=== PATIENT | female | born 1965 | race Hispanic/Latino ===

== ENCOUNTER 2017-11-19 15:15 | Emergency (ER) | payer OTHER ==
[2017-11-19 15:21] VITALS: BMI 29.2
[2017-11-19 15:24] VITALS: RESP 18; O2SAT 99
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
--- NOTE | 2017-11-19 16:55 | RAD ---
PROCEDURE: Right Ankle Radiographs. HISTORY: Ankle pain status post fall COMPARISON: None FINDINGS: BONES: No evidence of acute displaced fracture nor dislocation. JOINTS: The slight widening of the medial aspect of the ankle mortise could be positional. Clinical correlation recommended SOFT TISSUES: Minor bilateral soft tissue swelling lateral greater than medial OTHER FINDINGS: None. IMPRESSION: No evidence of acute displaced fracture. Slight widening of the ankle mortise at could be positional. Clinical correlation recommended. Mild bilateral soft tissue swelling lateral greater than medial.
[2017-11-19 17:16] VITALS: BP 125/70; PULSE 85; TEMP 98
== END 2017-11-19 17:10 | disposition home or self-care (01) ==
LOC: ED 15:15 → MERGE 15:15 → ED 17:10
DX: S93.401A Sprain of unspecified ligament of right ankle, initial encounter (principal); V19.9XXA Pedal cyclist (driver) (passenger) injured in unspecified traffic accident, initial encounter; Y93.55 Activity, bike riding; E03.9 Hypothyroidism, unspecified

== ENCOUNTER 2018-03-12 08:00 | Emergency (ER) | payer OTHER ==
[2018-03-12 08:18] VITALS: RESP 18; BMI 26.5
--- NOTE | 2018-03-12 09:40 | ED PDOC ---
Arrival/HPI - General Historian: Patient - History of Present Illness Symptom Onset: Gradual Symptom Course: Worsening Quality: Pressure <Robby Green - Last Filed: 03/12/18 10:54> - History of Present Illness Severity Level: Moderate <Femi Song - Last Filed: 03/12/18 18:41> - General Chief Complaint: Headache Time Seen by Provider: 03/12/18 09:09 - History of Present Illness Narrative History of Present Illness (Text): 03/12/18 09:33 53 year old female, past medical history of Hypothyroidism and Hyperlipidemia, presents to the ED with pressure sensations in the head. She states this has been going on for a year and a half, however recently it has gotten worse. The pressure is worse on the right side particularly behind the ear radiating to the back of the neck. She states this is different than a headache. It comes and goes. She associates the pressure in the head with electric energy sensations in the body particularly the extremities. She denies any pins and needles, numbness, or tingling. Patient endorses dizziness with lying down and blurry vision. She denies nausea, vomiting, loss of consciousness, chest pain, or shortness of breath. There is no known inciting events. She has not changed her medications recently. PMD: Dr. Robledo (Robby Green) Past Medical History - Provider Review Nursing Documentation Reviewed: Yes - Infectious Disease Hx of Infectious Diseases: None - Cardiac Hx Cardiac Disorders: No - Pulmonary Hx Respiratory Disorders: No - Neurological Hx Neurological Disorder: No - HEENT Hx HEENT Disorder: No - Renal Hx Renal Disorder: No - Endocrine/Metabolic Hx Hypothyroidism: Yes - Hematological/Oncological Hx Blood Disorders: No - Integumentary Hx Dermatological Disorder: No - Musculoskeletal/Rheumatological Hx Musculoskeletal Disorders: No - Gastrointestinal Hx Gastrointestinal Disorders: No - Psychiatric Hx Substance Use: No - Anesthesia Hx Anesthesia: No <Robby Green - Last Filed: 03/12/18 10:54> Family/Social History - Physician Review Nursing Documentation Reviewed: Yes Family/Social History: No Known Family HX Smoking Status: Former Smoker Hx Alcohol Use: No Hx Substance Use: No <Robby Green - Last Filed: 03/12/18 10:54> Allergies/Home Meds <Robby Green - Last Filed: 03/12/18 10:54> <Femi Song - Last Filed: 03/12/18 18:41> Allergies/Adverse Reactions: Allergies No Known Allergies Allergy (Verified 11/19/17 15:21) Home Medications: Home Meds Medication Instructions Recorded Confirmed Levothyroxine [Synthroid] 100 mcg PO DAILY 11/19/17 03/12/18 Review of Systems - Physician Review All systems were reviewed & negative as marked: Yes - Review of Systems Constitutional: absent: Weight Change, Fevers Eyes: Vision Changes ENT: absent: Tinnitus Respiratory: absent: SOB, Cough Cardiovascular: absent: Chest Pain Gastrointestinal: absent: Abdominal Pain Genitourinary Female: absent: Dysuria Musculoskeletal: absent: Back Pain Skin: absent: Skin Lesions Neurological: Dizziness. absent: Headache Endocrine: absent: Diaphoresis <Martha Greenbah - Last Filed: 03/12/18 10:54> Physical Exam Vital Signs Reviewed: Yes Temperature: Afebrile Blood Pressure: Normal Pulse: Regular Respiratory Rate: Normal Appearance: Positive for: Well-Appearing, Non-Toxic, Comfortable Pain Distress: None Mental Status: Positive for: Alert and Oriented X 3 - Systems Exam Head: Present: Atraumatic, Normocephalic Pupils: Present: PERRL Extroacular Muscles: Present: EOMI Ears: Present: NORMAL TM Mouth: Present: Moist Mucous Membranes Pharnyx: No: ERYTHEMA, EXUDATE, TONSILS ENLARGED Neck: Present: Normal Range of Motion Respiratory/Chest: Present: Clear to Auscultation, Good Air Exchange. No: Respiratory Distress, Accessory Muscle Use Cardiovascular: Present: Regular Rate and Rhythm, Normal S1, S2. No: Murmurs Abdomen: No: Tenderness, Distention, Peritoneal Signs Neurological: Present: CN II-XII Intact, Speech Normal Skin: Present: Warm, Dry Lymphatic: No: Cervical Adenopathy Psychiatric: Present: Alert, Oriented x 3 <Martha Greenbah - Last Filed: 03/12/18 10:54> Vital Signs Temp Pulse Resp BP Pulse Ox 03/12/18 11:20 97.9 F 68 18 131/71 97 03/12/18 11:02 98.0 F 64 18 142/69 97 03/12/18 09:46 75 18 145/74 96 03/12/18 08:17 98.2 F 77 18 147/80 96 Medical Decision Making Reassessment Condition: Re-examined <Robby Green - Last Filed: 03/12/18 10:54> <Femi Song - Last Filed: 03/12/18 18:41> ED Course and Treatment: 03/12/18 09:45 53F, PMH HLD and Hypothyroid, presents with worsening pressure in the head. CBC, CMP, Free T4, TSH, Orthostatics, test ordered. CT head ordered. 03/12/18 10:54 CT head unremarkable Labs show elevated TSH 03/12/18 11:03 (Robby Green) Patient is a 53 year old female has a past medical history of hypothyroisim and hyperlipidemia, presenting with head-pressure that has been worsening recently. Patient Seen With Resident: In agreement with resident note which contains more details about the patient. Patient was seen and evaluated with resident. Came up with plan and treatment together. (Femi Song) - Lab Interpretations Lab Results: 03/12/18 09:30 03/12/18 09:30 Lab Results 03/12/18 09:30: Free T4 1.19, TSH 3rd Generation 12.30 H 03/12/18 09:30: Sodium 142, Potassium 3.6, Chloride 102, Carbon Dioxide 29, Anion Gap 14, BUN 15, Creatinine 0.7, Est GFR ( Amer) > 60, Est GFR (Non- Af Amer) > 60, Random Glucose 97, Calcium 9.2, Phosphorus 3.4, Magnesium 2.1, Total Bilirubin 0.4, AST 24, ALT 23, Alkaline Phosphatase 56, Total Protein 7.6 , Albumin 4.2, Globulin 3.3, Albumin/Globulin Ratio 1.3 03/12/18 09:30: WBC 5.6, RBC 4.30, Hgb 11.7 L, Hct 34.8 L, MCV 80.9, MCH 27.2, MCHC 33.6, RDW 13.1, Plt Count 422, MPV 8.3, Gran % 60.0, Lymph % (Auto) 31.7, [place] % (Auto) 5.0, Eos % (Auto) 2.9, Baso % (Auto) 0.4, Gran # 3.35, Lymph # ( Auto) 1.8, [place] # (Auto) 0.3, Eos # (Auto) 0.2, Baso # (Auto) 0.02 - RAD Interpretation Radiology Orders: 03/12/18 09:49 HEAD W/O CONTRAST [CT] Stat - PA / FIELD SCOUT / Resident Statement MD/DO has reviewed & agrees with the documentation as recorded. MD/DO has examined the patient and agrees with the treatment plan. <Femi Song - Last Filed: 03/12/18 18:41> Disposition/Present on Arrival - Present on Arrival Any Indicators Present on Arrival: No History of DVT/PE: No History of Uncontrolled Diabetes: No Urinary Catheter: No History of Decub. Ulcer: No History Surgical Site Infection Following: None - Disposition Have Diagnosis and Disposition been Completed?: Yes Disposition Time: 10:58 <Robby Green - Last Filed: 03/12/18 10:54> <Femi Song - Last Filed: 03/12/18 18:41> - Disposition Diagnosis: Paresthesia, Hypothyroidism Disposition: HOME/ ROUTINE Condition: IMPROVED Discharge Instructions (ExitCare): Hypothyroidism (Underactive Thyroid) (DC), Paresthesias (DC) Referrals: Delilah Robledo [Family Provider] - Follow up with primary Forms: [employer] (Amharic)
[2018-03-12 09:53] LABS: BASO # 0.02 K/mm3 (0.0-2.0); BASO % 0.4 % (0.0-3.0); EOS # 0.2 (0.0-0.7); EOS % 2.9 % (1.5-5.0); GRAN # 3.35 (1.4-6.5); HEMOGLOBIN 11.7 g/dL (12.0-16.0); LYMPH # 1.8 (1.2-3.4); LYMPH % 31.7 % (22.0-35.0); MEAN CELL VOLUME 80.9 fl (80.0-105.0); MEAN CORPUSCULAR HEMOGLOBIN 27.2 pg (25.0-35.0); MEAN CORPUSCULAR HGB CONC 33.6 g/dl (31.0-37.0); MEAN PLATELET VOLUME 8.3 fl (7.0-11.0); MONO # 0.3 (0.1-0.6); RBC 4.3 10^6/uL (3.5-6.1); RED CELL DISTRIBUTION WIDTH 13.1 % (11.5-14.5); WHITE BLOOD COUNT 5.6 10^3/ul (4.5-11.0)
[2018-03-12 10:01] LABS: ALB/GLOB RATIO 1.3 (1.1-1.8); ALBUMIN 4.2 g/dL (3.0-4.8); ALT/SGPT 23 U/L (7-56); AST/SGOT 24 U/L (14-36); BLOOD UREA NITROGEN 15 mg/dL (7-21); CALCIUM 9.2 mg/dL (8.4-10.5); GFR NON-AFRICAN AMERICAN > 60
[2018-03-12 10:28] LABS: FREE T4 1.19 ng/dL (0.78-2.19)
--- NOTE | 2018-03-12 10:42 | CT ---
Date of service: 03/12/2018 PROCEDURE: CT HEAD WITHOUT CONTRAST. HISTORY: head pressure, blurry vision, dizziness COMPARISON: None available. TECHNIQUE: Axial computed tomography images were obtained through the head/brain without intravenous contrast. Radiation dose: Total exam DLP = 827.30 mGy-cm. This CT exam was performed using one or more of the following dose reduction techniques: Automated exposure control, adjustment of the mA and/or kV according to patient size, and/or use of iterative reconstruction technique. FINDINGS: HEMORRHAGE: No intracranial hemorrhage. BRAIN: No mass effect or edema. The pool-white matter differentiation appears intact. Please note that MRI with diffusion imaging is more sensitive in the detection of acute ischemic event. VENTRICLES: No hydrocephalus. CALVARIUM: Unremarkable. PARANASAL SINUSES: Unremarkable as visualized. No significant inflammatory changes. MASTOID AIR CELLS: Unremarkable as visualized. No inflammatory changes. OTHER FINDINGS: None. IMPRESSION: No acute intracranial pathology identified.
[2018-03-12 11:02] VITALS: O2SAT 97
[2018-03-12 11:21] VITALS: BP 131/71; PULSE 68; TEMP 97.9
== END 2018-03-12 11:20 | disposition home or self-care (01) ==
LOC: ED 08:00
DX: R20.2 Paresthesia of skin (principal); E03.9 Hypothyroidism, unspecified; E78.5 Hyperlipidemia, unspecified; Z87.891 Personal history of nicotine dependence

== ENCOUNTER 2018-04-19 06:56 | Emergency (ER) | payer OTHER ==
[2018-04-19 06:56] VITALS: BMI 26.5
[2018-04-19 07:39] VITALS: O2SAT 98
--- NOTE | 2018-04-19 08:00 | ED PDOC ---
Arrival/HPI - General Chief Complaint: Headache Time Seen by Provider: 04/19/18 07:56 Historian: Patient - History of Present Illness Narrative History of Present Illness (Text): 53yo female, with past medical history of hypothyroidsm and currently on synthroid, comes to ER reporting a pressure sensation in her neck. Patient states the sensation is present in her head as well and states there is "electricity" in her head. She denies any neck pain, headache, or shoulder pain. Patient states she was seen in this ER 1 month ago for the same complaints and states she had her medications changed; patient has not followed up with a PCP or a neurologist since her last visit. Patient does report some dizziness while lying down; otherwise no fever, chills, chest pain, shortness of breath, vomiting, weakness or numbness. No additional medical complaints. PMD: None provided Time/Duration: > month Symptom Onset: Gradual Symptom Course: Unchanged Quality: Pressure Past Medical History - Provider Review Nursing Documentation Reviewed: Yes - Infectious Disease Hx of Infectious Diseases: None - Reproductive Menopause: Yes - Cardiac Hx Cardiac Disorders: No - Pulmonary Hx Respiratory Disorders: No - Neurological Hx Neurological Disorder: No - HEENT Hx HEENT Disorder: No - Renal Hx Renal Disorder: No - Endocrine/Metabolic Hx Hypothyroidism: Yes - Hematological/Oncological Hx Blood Disorders: No - Integumentary Hx Dermatological Disorder: No - Musculoskeletal/Rheumatological Hx Musculoskeletal Disorders: No - Gastrointestinal Hx Gastrointestinal Disorders: No - Psychiatric Hx Substance Use: No - Anesthesia Hx Anesthesia: No Family/Social History - Physician Review Nursing Documentation Reviewed: Yes Family/Social History: No Known Family HX Smoking Status: Former Smoker Hx Alcohol Use: No Hx Substance Use: No Allergies/Home Meds Allergies/Adverse Reactions: Allergies No Known Allergies Allergy (Verified 11/19/17 15:21) Home Medications: Home Meds Medication Instructions Recorded Confirmed Levothyroxine [Synthroid] 100 mcg PO DAILY 11/19/17 03/12/18 Review of Systems - Physician Review All systems were reviewed & negative as marked: Yes (as per HPI) - Review of Systems Constitutional: absent: Fevers Cardiovascular: absent: Chest Pain Gastrointestinal: absent: Vomiting Musculoskeletal: absent: Neck Pain, Other (shoulder pain) Neurological: Dizziness, Other (pressure in neck). absent: Headache Physical Exam - Physical Exam Narrative Physical Exam (Text): Gen: VS reviewed, alert, well developed, well nourished, nontoxic, mild distress. ENT: normal pharynx. Eye: EOMI, PERRL. Neck: no JVD, supple, no adenopathy. CV: regular rate, regular rhythm, no rubs, no murmur, no gallops, S1, S2, pulses equal and strong. Pulm: no distress, clear to auscultation, no wheeze, no rhonchi, breath sounds equal, no rales. Abd: soft, nontender, no guarding, no rebound, no rigidity, normal bowel sounds. Ext: no edema. Skin: good color, no rash, no cyanosis. Psych: responds appropriately to questions, normal affect. Neuro: oriented x 3, CN2-12 intact grossly, motor intact, sensation intact. Vital Signs Temp Pulse Resp BP Pulse Ox 04/19/18 07:39 98.2 F 79 16 142/81 98 04/19/18 07:31 98.1 F 84 18 130/79 99 Medical Decision Making ED Course and Treatment: Impression: 53yo female, comes to ER reporting "pressure sensation" in her neck x 1 month Plan: -- Labs -- EKG -- Reassess and disposition Prior Visits: Notes and results from previous visits were reviewed. Patient was last seen in the emergency department on 03/12/2018 for similar complaints, had a CT Head done which was unremarkable and was discharged home. Progress Notes: 04/19/18 09:30 Labs reviewed, shows no clinically significant abnormalities. Patient stable for discharge home; instructed to follow up with PMD in 2-3 days. 04/19/18 10:20 patient seen for neck pain and scalp "pressure", no headache, no photophobia, no meningismus, no neuro deficits. according to records the symptoms have been ongoing for well over a year. ddx including but not limited to cervical radiculopathy. i have informed the patient and her daughter (abel via phone) of plan and recommendation and they appear to understand. they will follow up with primary care docotor. - EKG Interpretation EKG Interpretation (Text): 04/19/18 08:45 [id number]: nsr at 73 bpm, nml qrs, nml axis, no acute sttw abn Interpreted by ED Physician: Yes - Scribe Statement The provider has reviewed the documentation as recorded by the Scribe [employer] Provider Ashish Attestation: All medical record entries made by the Ashish were at my direction and personally dictated by me. I have reviewed the chart and agree that the record accurately reflects my personal performance of the history, physical exam, medical decision making, and the department course for this patient. I have also personally directed, reviewed, and agree with the discharge instructions and disposition. Disposition/Present on Arrival - Present on Arrival Any Indicators Present on Arrival: No History of DVT/PE: No History of Uncontrolled Diabetes: No Urinary Catheter: No History of Decub. Ulcer: No History Surgical Site Infection Following: None - Disposition Have Diagnosis and Disposition been Completed?: Yes Diagnosis: Radiculopathy of cervical region Disposition: HOME/ ROUTINE Disposition Time: 09:31 Patient Plan: Discharge Condition: STABLE Discharge Instructions (ExitCare): Radiculopathy (DC) Additional Instructions: return for any new or worsening symptoms. follow up with a neurologist. KENDELL MA, thank you for letting us take care of you today. Your provider was Dr. Roge Lancaster and you were treated for head pressure. The emergency m edical care you received today was directed at your acute symptoms. If you were prescribed any medication, please fill it and take as directed. It may take several days for your symptoms to resolve. Return to the Emergency Department if your symptoms worsen, do not improve, or if you have any other problems. Please contact your doctor or call one of the physicians/clinics you have been referred to that are listed on the Patient Visit Information form that is included in your discharge packet. Bring any paperwork you were given at discharge with you along with any medications you are taking to your follow up visit. Our treatment cannot replace ongoing medical care by a primary care provider outside of the emergency department. Thank you for allowing the 24h[facility] team to be part of your care today. If you had an X-Ray or CT scan: A Radiologist will review the ED reading if any change in treatment is needed we will contact you. If you had a blood, urine, or wound culture: It will take several days for the results, if any change in treatment is needed we will contact you. If you had an STI test: It will take 48 hours for the results. Please call after 1 week if you have not heard back. Referrals: Damian Vega MD [Staff Provider] - Follow up with primary [facility] [Outside] - Follow up with primary Forms: [employer] (Kinyarwanda)
[2018-04-19 08:37] LABS: BASO # 0.02 K/mm3 (0.0-2.0); BASO % 0.4 % (0.0-3.0); EOS # 0.2 (0.0-0.7); EOS % 3.4 % (1.5-5.0); GRAN # 2.81 (1.4-6.5); GRAN % 53.3 % (50.0-68.0); HEMOGLOBIN 11.6 g/dL (12.0-16.0); LYMPH # 1.8 (1.2-3.4); MEAN CELL VOLUME 82.9 fl (80.0-105.0); MEAN CORPUSCULAR HEMOGLOBIN 27.2 pg (25.0-35.0); MEAN CORPUSCULAR HGB CONC 32.9 g/dl (31.0-37.0); MEAN PLATELET VOLUME 8.2 fl (7.0-11.0); MONO # 0.5 (0.1-0.6); MONO % 8.9 % (1.0-6.0); RBC 4.26 10^6/uL (3.5-6.1); RED CELL DISTRIBUTION WIDTH 13.3 % (11.5-14.5); WHITE BLOOD COUNT 5.3 10^3/ul (4.5-11.0)
[2018-04-19 08:51] LABS: BLOOD UREA NITROGEN 14 mg/dL (7-21); CALCIUM 9.5 mg/dL (8.4-10.5); GFR NON-AFRICAN AMERICAN > 60
[2018-04-19 10:35] VITALS: BP 112/69; RESP 18
[2018-04-19 10:38] VITALS: PULSE 78; TEMP 97.8
--- NOTE | 2018-04-19 11:47 | CARD ---
APPROVED REPORT Date of service: 04/19/2018 EKG Measurement Heart [id number] <Conclusion> Normal sinus rhythm Possible Left atrial enlargement Borderline ECG
== END 2018-04-19 10:37 | disposition home or self-care (01) ==
LOC: ED 06:56
DX: M54.12 Radiculopathy, cervical region (principal); E03.9 Hypothyroidism, unspecified; Z87.891 Personal history of nicotine dependence